=== PATIENT | female | born 1980 | race Two or more races ===

== ENCOUNTER 2018-05-10 16:52 | Emergency (ER) | payer SELFPAY ==
[~2018-05-10] VITALS: Ht 134.6 cm; Wt 59.0 kg
[2018-05-10 17:05] VITALS: BP 166/93
[2018-05-10] MEDS: KETOROLAC TROMETH 60MG/2ML VIAL IM ONE (19:47)
== END 2018-05-10 19:54 | disposition home or self-care (01) ==
LOC: ER 16:52
DX: S16.1XXA Strain of muscle, fascia and tendon at neck level, initial encounter (principal); R51 Headache; M54.9 Dorsalgia, unspecified; W01.0XXA Fall on same level from slipping, tripping and stumbling without subsequent striking against object, initial encounter; Y93.89 Activity, other specified; Y92.89 Other specified places as the place of occurrence of the external cause; Y99.8 Other external cause status
CPT/HCPCS: 70450; 72125; 72131; 96372; 99284; J1885